=== PATIENT | male | born 1965 | race Caucasian/White ===

== ENCOUNTER 2018-01-20 21:04 | Emergency (ER) | payer SELFPAY ==
[~2018-01-20] VITALS: Ht 175.3 cm; Wt 74.8 kg
[2018-01-20 21:06] VITALS: BP 122/73
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
[2018-01-20 21:23] VITALS: BP 122/73
== END 2018-01-20 22:47 | disposition home or self-care (01) ==
LOC: EDBD 21:04 → EMR 21:55
DX: R10.9 Unspecified abdominal pain (principal); Z59.0 Homelessness
CPT/HCPCS: 99283